=== PATIENT | female | born 1950 | race African-American/Black ===

== ENCOUNTER 2021-05-10 18:55 | Emergency (ER) | payer BC ==
[~2021-05-10] VITALS: Ht 167.6 cm; Wt 79.4 kg
[2021-05-10] MEDS ORDERED: BENA40TA8 PO (19:14)
--- NOTE | 2021-05-10 19:19 | NUR ---
Patient presents to ER with c/o of headache after falling on concrete. Pt states she was trying to get away from a bee when she lost her balance and fell backwards and hit the back part of her head. Noted mild swelling and redness. Pt in no acute distress. Dr. Fernandez at bedside.
[2021-05-10] MEDS ORDERED: ACETAMINOPHEN 325 MG TABLET PO ONE (19:30)
[2021-05-10] MEDS ORDERED: ACETAMINOPHEN 325 MG TABLET ONE (19:42)
[2021-05-10 21:40] VITALS: BP 177/94
[2021-05-10] MEDS ORDERED: BENAZEPRIL HCL 10 MG TABLET ONE (21:40)
--- NOTE | 2021-05-10 21:40 | NUR ---
Per Dr. Fernandez patient stable for discharge. DC instructions given and reviewed with patient. Verbalized understanding. Left ER in stable condition.
[2021-05-10] MEDS ORDERED: BENAZEPRIL HCL 10 MG TABLET PO ONE (21:45)
== END 2021-05-10 21:45 | disposition home or self-care (01) ==
LOC: ER 19:10
DX: S06.0X0A Concussion without loss of consciousness, initial encounter (principal); W18.39XA Other fall on same level, initial encounter; Y93.89 Activity, other specified; Y92.89 Other specified places as the place of occurrence of the external cause; Y99.8 Other external cause status; I10 Essential (primary) hypertension; Z79.899 Other long term (current) drug therapy
CPT/HCPCS: 70450; A4663